=== PATIENT | male | born 1990 | race Caucasian/White ===

== ENCOUNTER 2025-03-13 20:41 | Emergency (ER) | payer OTHER, SELFPAY ==
[2025-03-13 20:47] VITALS: BP 140/80
--- NOTE | 2025-03-13 22:44 | ED.SKININJ ---
HPI-Injury
General
Chief Complaint: Skin Surface Trauma
Source: patient
Time Seen by Provider: 03/13/25 22:03
History of Present Illness-Injury
Initial Injury comments:
Note:
CHIEF COMPLAINT(S)
Laceration to the left arm
HISTORY OF PRESENT ILLNESS
The patient is a 37-year-old male who presented with a laceration to the left hand. The injury occurred while the patient was using a stainless steel knife. The patient describes the knife as very clean and indicates that the cut was deep, though it
could have been much worse. The injury occurred in the morning. The patient is uncertain about the tetanus status and expresses willingness to receive a tetanus booster if necessary.
PHYSICAL EXAM
General: Alert, no acute distress.
Skin: Laceration present on the left hand.
Neck: Supple, trachea midline.
Eye, Ears, Nose, and Throat: Oral mucosa moist.
Cardiovascular: Normal peripheral perfusion, No edema.
Respiratory: Respirations are non-labored.
Gastrointestinal: Abdomen nondistended.
Back: Normal range of motion, Normal alignment.
Musculoskeletal: Normal ROM, normal strength, except for the affected area of the left hand.
Neurological: Alert and oriented to person, place, time, and situation, No focal neurological deficit observed.
Psychiatric: Cooperative, appropriate mood & affect.
PROBLEM LIST
Acute Problems:
1. Laceration to the left hand.
PLAN
1. Administer a tetanus booster, given the uncertainty of the patients tetanus immunization status.
2. Evaluate the laceration further for possible closure.
DIFFERENTIAL DIAGNOSIS
The Differential Diagnosis includes, in no particular order and is not limited to:
1. Laceration due to sharp object
2. Traumatic soft tissue injury
3. Foreign body in wound
4. Tendon injury
5. Nerve injury
6. Infection
7. Hematoma
8. Fracture underlying laceration
9. Contusion
10. Abrasion
Disposition:
SUMMARY OF ENCOUNTER
The patient, a 37-year-old male, presented with a 4-centimeter linear laceration to the left arm, which was sustained while using a stainless steel knife. The wound was examined and subsequently closed using 8 5-0 sutures. The patient tolerated the
procedure well, and Steri-Strips were applied to assist in healing.
PROCEDURES
The laceration on the left arm was closed with 8-0 sutures. The patient tolerated the procedure well, and Steri-Strips were applied.
FOLLOW-UP INSTRUCTIONS
Sutures are to be removed in seven days.
MEDICAL DECISION MAKING
-Complexity of Data Reviewed: DDx list includes laceration due to sharp object, traumatic soft tissue injury, foreign body in wound, tendon injury, nerve injury, infection, hematoma, fracture underlying laceration, contusion, and abrasion.
-Risk: Consideration of Admission/Observation: Escalation of care including admission/observation was considered given the complexity and risk of the patients presenting complaint, exam findings, and/or their underlying comorbidities. However,
ultimately I feel the patient is safe for outpatient management with close follow-up. Reasoning: Work-up reassuring, does not reveal any acute life/organ threatening processes, patients symptoms well controlled upon reevaluation, reexamination is
reassuring, vitals are stable, patient agreeable with discharge, reliable for follow-up.
DIAGNOSIS
Laceration of the left arm (S51.812A).
Past History
Past History
ED Past Medical History: None
Social History
Tobacco: Former smoker
Living: with family
Employment: Employed
Phy Exam
Physical Exam
Physical Exam:
.
Course
Orders/Labs/Results
Orders:
Orders
03/13/25 20:52
Forearm, Left 2 View [CR Forearm - Left 2 View] Urgent
Comment:
Reason For Exam: laceration
03/13/25 22:41
Tetanus/Diphth/Acelpertussis [Adacel] 0.5 ml IM .ONCE ONE
Vital Signs
Initial and Last Documented VS:
Initial Vital Signs
Temp Pulse Resp BP Pulse Ox
98.1 F 78 16 140/80 98
03/13/25 20:47 03/13/25 20:47 03/13/25 20:47 03/13/25 20:47 03/13/25 20:47
Last Documented Vital Signs
Temp Pulse Resp BP Pulse Ox
98.1 F 78 16 140/80 98
03/13/25 20:47 03/13/25 20:47 03/13/25 20:47 03/13/25 20:47 03/13/25 22:45
Procedures
Laceration Closure
Left Anterior Arm:
Status of Wound: clean
Size of Wound in cm: 4
Description of Wound Edges: sharp and flap-well vascularized
Preparation: cleaned with saline
Anesthesia: 1% Lidocaine
Wound exploration: explored to base- no FB
Type of Closure: single layer closure
Skin Closure Material: 5-0 nylon
Number of sutures: 8
*Radiology
Radiology exam reviewed: radiology read reviewed
*Pulse Oximetry
SaO2: 98
Oxygen Mode of Delivery: Room air
Patient hypoxic: no
*Critical Care Note
Total Time (30-74mins, 75-104mins- exclusive of procedures): Not Applicable
ED Attending Note
-
Portions of this chart may have been created with voice recognition software.� Occasional wrong word or��sound alike� substitutions may have occurred due to the inherent limitations of voice recognition software.
Discharge Plan
Departure
Patient Disposition: Home (Routine Discharge)
Date of Disposition: 03/13/25
Time of Disposition: 23:14
Patient with high blood pressure during this ER visit?: Yes
Discharge Problem:
Laceration
Instructions: Wound Care (DC), Laceration Repair With Stitches (DC)
Prescriptions:
No Action
penicillin V potassium 500 MG tablet
500 mg PO QID Qty: 40 0RF
Referrals:
UNKNOWN - PT DOES,NOT KNOW [Family Provider]
Activity Restrictions/Additional Instructions:
Your sutures can be removed in 5 to 7 days.
Thank You for choosing [facility].
It was a pleasure meeting you and taking part in your care. We hope for your continued healing and wellness.
Please read discharge instructions in their entirety. However, they are for general education and may not describe your exact diagnosis at discharge. Information on your ER visit and medical conditions were discussed with you along with appropriate
follow up information...
If indicated, please take your medications as instructed and indicated on discharge paperwork.
Please schedule a follow up appointment as directed. Call to schedule an appointment
Please return to the emergency department with ANY change in, persisting, or worsening of symptoms. If any of your symptoms do not improve, or persist, or become more severe within 6-12 hours, please return to the emergency department for further
care.
Please return to the emergency department if you develop a headache, neck pain/stiffness, fever greater than 100.4F, chest pain, shortness of breath, persistent nausea, vomiting, slurred speech, difficulty walking, numbness/tingling, weakness, signs
of infection or any other symptoms that are worrisome to you.
If you have any questions or concerns please do not hesitate to call the Hospital at or E-mail me directly at [email or web address]
Interventions
Interventions:
*Risk Screen - Suicide Last Done: 03/13/25 22:02
*Neglect/Abuse Screening Last Done: 03/13/25 22:02
*ED- Fall Risk Assessment Last Done: 03/13/25 22:02
*ED COVID-19 Vaccine History Last Done: 03/13/25 22:02
ED-Skin Assessment Last Done: 03/13/25 22:02
Discharge Date and Time
Print Language: BULGARIAN
[2025-03-13] MEDS: ADACEL 0.5 ML IM (22:46)
== END 2025-03-13 23:29 | disposition home or self-care (01) ==
LOC: EMR 20:41
PROVIDERS: EMERGENCY PHYSICIAN Student in an Organized Health Care Education/Training Program
DX: S51.812A Laceration without foreign body of left forearm, initial encounter (principal); W26.0XXA Contact with knife, initial encounter; R03.0 Elevated blood-pressure reading, without diagnosis of hypertension; Z23 Encounter for immunization; Z87.891 Personal history of nicotine dependence
CPT/HCPCS: 99283; 12002; 90471; 73090; 90715